=== PATIENT | male | born 1985 | race Caucasian/White ===

== ENCOUNTER 2020-07-29 12:58 | Emergency (ER) | payer OTHER ==
[~2020-07-29] VITALS: Ht 185.4 cm; Wt 107.9 kg
[2020-07-29] MEDS ORDERED: ONDANSETRON 4MG/2ML VIAL IV ONE (15:00)
[2020-07-29] MEDS ORDERED: NS 1,000 ML IV ONE (15:00)
--- NOTE | 2020-07-29 15:07 | REP ---
INDICATION: L flank pain, dysuria, h/o kidney stones COMPARISON: None. TECHNIQUE: Helical scanning is acquired in 4 mm axial images were reformatted. Coronal and sagittal MPR images were generated and reviewed. FINDINGS: Digital preliminary coal grader radiograph is unremarkable. The lung bases show mild linear plate-like atelectasis or fibrosis. There is no evidence of pleural effusion or upper abdominal ascites. The liver and the spleen are normal in size homogeneous in texture. There is a small accessory splenule in the left upper quadrant. No abnormality is noted in the pancreas. No abnormality is noted in the gallbladder. Normal adrenal glands are seen. The right kidney is unremarkable. The left kidney shows moderate hydronephrosis and hydroureter with Jaz ureteral and perinephric stranding. The hydroureter is seen to the level of the ureterovesical junction where there is an obstructive calculus measuring 4.3 mm at the ureterovesical junction. No bladder calculus is seen. No intrarenal calculus is observed on either side. Prostate, seminal vesicles and urinary bladder are unremarkable. A normal appendix is seen. Small and large bowel loops are normal in appearance. No abdominal wall defect or bony destructive lesion is appreciated. IMPRESSION: 4.3 mm obstructive left distal ureteral calculus at the ureterovesical junction with moderate hydronephrosis and hydroureter on the left side. Bibasilar plate-like atelectasis in the lung booker. <Electronically signed by Rasheed Chin > 07/29/20 [id number]
[2020-07-29 15:58] LABS: BASO # 0.1 10^3/uL (0.0-0.2); BASO % 0.4 % (0.0-1.0); EOS # 0.3 10^3/uL (0.0-0.5); EOS % 1.7 % (0.0-3.0); HEMATOCRIT 46.3 % (42.0-52.0); HEMOGLOBIN 14.8 g/dl (13.5-17.5); LYMPH # 1.1 10^3/uL (1.5-5.0); MEAN CORPUSCULAR HEMOGLOBIN 28.1 pg (27.0-33.0); MONO # 0.9 10^3/uL (0.0-0.8); MONO % 5.8 % (0.0-5.0); NEUTROPHILS # 13.2 10^3/uL (1.5-8.5); NEUTROPHILS % 84.4 % (36.0-66.0); PLATELET COUNT, AUTOMATED 249 10^3/uL (150-450); RED BLOOD COUNT 5.26 10^6/uL (4.30-6.10); WHITE BLOOD COUNT 15.6 10^3/uL (4.0-10.0)
[2020-07-29] MEDS ORDERED: KETOROLAC 30 MG/ML 1ML VIAL IV ONE (16:15)
[2020-07-29 16:39] LABS: ALBUMIN 4.1 GM/DL (3.2-5.2); BILIRUBIN,DIRECT 0.1 MG/DL (0.0-0.2); BILIRUBIN,TOTAL 0.5 MG/DL (0.2-1.0); TOTAL PROTEIN 7.2 GM/DL (6.4-8.2)
[2020-07-29] MEDS ORDERED: ONDA4TAB6 PO (16:41)
[2020-07-29] MEDS ORDERED: KETO10TAB PO (16:41)
[2020-07-29] MEDS ORDERED: FLOM0.4C39 PO (16:41)
[2020-07-29 17:08] VITALS: BP 125/78
[2020-07-29 17:31] LABS: CHLAMYDIA DNA AMPLIFICATION NEGATIVE (NEGATIVE); GC DNA AMPLIFICATION NEGATIVE (NEGATIVE)
== END 2020-07-29 17:17 | disposition home or self-care (01) ==
LOC: M ED 12:58
DX: N20.1 Calculus of ureter (principal); N23 Unspecified renal colic; J98.11 Atelectasis; F17.200 Nicotine dependence, unspecified, uncomplicated
CPT/HCPCS: 74176; 80047; 80076; 81001; 82150; 83690; 85025; 87661; 96374; 96375; 99284; J1885; J2405

== ENCOUNTER → 2020-08-06 | Outpatient (REF) | payer OTHER ==
[~2020-08-06] MED LIST: FLOM0.4C39 PO; KETO10TAB PO; ONDA4TAB6 PO
== END ==
LOC: M SMT 13:15
PROVIDERS: ATTEND Urology
DX: N20.1 Calculus of ureter (principal)